=== PATIENT | female | born 1970 | race American Indian/Alaskan Native ===

== ENCOUNTER 2017-10-13 08:55 | Emergency (ER) | payer SELFPAY ==
[2017-10-13] MEDS ORDERED: BENADRYL ONE (12:19)
[2017-10-13] MEDS ORDERED: ANTIVERT PO ONE (12:53)
[2017-10-13] MEDS ORDERED: FIORICET PO ONE (12:54)
--- NOTE | 2017-10-13 13:29 | Emergency Department Report ---
ED General Adult HPI - General Chief complaint: Headache Stated complaint: HEADACHE/N/V Time Seen by Provider: 10/13/17 12:25 Source: patient Mode of arrival: Ambulatory Limitations: No Limitations - History of Present Illness Initial comments: Patient presents to emergency department with a complaint of dizziness. Patient states that when she stands up quickly or moves her head the room spins. Patient also complains of a headache of frontal torsion of her head that she describes as pressure. Patient denies any numbness, facial droop, slurred speech, or weakness. -: Sudden Location: head Severity scale (0 -10): 4 Quality: dull Consistency: constant Improves with: none Worsens with: none Associated Symptoms: denies other symptoms Treatments Prior to Arrival: none - Related Data Previous Rx's Medication Instructions Recorded Last Taken Type Ibuprofen [Motrin] 800 mg PO Q8HR PRN #30 tablet 10/13/17 Unknown Rx Meclizine [Antivert] 25 mg PO TID PRN #30 tablet 10/13/17 Unknown Rx hydroCHLOROthiazide [Hctz] 12.5 mg PO QDAY #30 capsule 10/13/17 Unknown Rx Allergies Allergy/AdvReac Type Severity Reaction Status Date / Time No Known Allergies Allergy Unverified 10/13/17 08:59 ED Review of Systems ROS: Stated complaint: HEADACHE/N/V Other details as noted in HPI Comment: All other systems reviewed and negative Constitutional: denies: chills, fever Eyes: denies: eye pain, eye discharge, vision change ENT: denies: ear pain, throat pain Respiratory: denies: cough, shortness of breath, wheezing Cardiovascular: denies: chest pain, palpitations Endocrine: no symptoms reported Gastrointestinal: denies: abdominal pain, nausea, diarrhea Genitourinary: denies: urgency, dysuria, discharge Musculoskeletal: denies: back pain, joint swelling, arthralgia Skin: denies: rash, lesions Neurological: headache, vertigo. denies: weakness, paresthesias Psychiatric: denies: anxiety, depression Hematological/Lymphatic: denies: easy bleeding, easy bruising ED Past Medical Hx - Past Medical History Previous Medical History?: No - Surgical History Past Surgical History?: No - Social History Smoking Status: Never Smoker Substance Use Type: None - Medications Home Medications: Home Medications Medication Instructions Recorded Confirmed Last Taken Type Ibuprofen [Motrin] 800 mg PO Q8HR PRN #30 tablet 10/13/17 Unknown Rx Meclizine [Antivert] 25 mg PO TID PRN #30 tablet 10/13/17 Unknown Rx hydroCHLOROthiazide [Hctz] 12.5 mg PO QDAY #30 capsule 10/13/17 Unknown Rx ED Physical Exam - General Limitations: No Limitations General appearance: alert, in no apparent distress - Head Head exam: Present: atraumatic, normocephalic - Eye Eye exam: Present: normal appearance, PERRL, EOMI. Absent: nystagmus - ENT ENT exam: Present: mucous membranes moist - Neck Neck exam: Present: normal inspection - Respiratory Respiratory exam: Present: normal lung sounds bilaterally. Absent: respiratory distress, wheezes, rales, rhonchi - Cardiovascular Cardiovascular Exam: Present: regular rate, normal rhythm. Absent: systolic murmur, diastolic murmur, rubs, gallop - GI/Abdominal GI/Abdominal exam: Present: soft, normal bowel sounds. Absent: distended, tenderness - Extremities Exam Extremities exam: Present: normal inspection - Back Exam Back exam: Present: normal inspection - Neurological Exam Neurological exam: Present: alert, oriented X3, CN II-XII intact, other (able to re-create symptoms with rapid eye and hand movement). Absent: abnormal gait , motor sensory deficit - Expanded Neurological Exam Expanded Cranial nerves: EOM's Intact: Normal, Tongue Deviation: Normal, Nystagmus: Normal, Facial Sensation: Normal, Facial Palsy with Forehead Movement: Normal, Facial Palsy without Forehead Movement: Normal Cerebellar function: Finger to Nose: Normal, Heel to Pike: Normal, Romberg: Normal - Psychiatric Psychiatric exam: Present: normal affect, normal mood - Skin Skin exam: Present: warm, dry, intact, normal color. Absent: rash ED Course Vital Signs 10/13/17 08:59 Temperature 98.5 F Pulse Rate 76 Respiratory 18 Rate Blood Pressure 185/99 O2 Sat by Pulse 100 Oximetry ED Medical Decision Making - Lab Data Result diagrams: 10/13/17 13:21 10/13/17 13:21 - EKG Data Rate: normal, bradycardia - EKG Data Interpretation: other (EKG shows a sinus bradycardia with a rate of 57. LVH of the lateral leads) - Medical Decision Making Patient have relief of her dizziness with medications Discussed results with patient and plan of care Critical care attestation.: If time is entered above; I have spent that time in minutes in the direct care of this critically ill patient, excluding procedure time. ED Disposition Clinical Impression: Vertigo Disposition: DC- TO HOME OR SELFCARE Is pt being admited?: No Does the pt Need Aspirin: No Condition: Stable Instructions: Vertigo (ED), How to Take a Blood Pressure (ED), Acute Headache (ED) Additional Instructions: return if worse Prescriptions: hydroCHLOROthiazide [Hctz] 12.5 mg PO QDAY #30 capsule Ibuprofen [Motrin] 800 mg PO Q8HR PRN #30 tablet PRN Reason: pain Meclizine [Antivert] 25 mg PO TID PRN #30 tablet PRN Reason: Vertigo Referrals: PRIMARY CARE, [Primary Care Provider] - 3-5 Days Time of Disposition: 14:36
[2017-10-13 13:39] LABS: Basophils # (Auto) 0.1 K/mm3 (0.0-0.1); Basophils % (Auto) 0.8 % (0.0-1.8); Eosinophils # (Auto) 0.1 K/mm3 (0.0-0.4); Eosinophils % (Auto) 2.2 % (0.0-4.3); Hematocrit 43.3 % (30.3-42.9); Hemoglobin 14.7 gm/dl (10.1-14.3); Lymphocytes # (Auto) 2.1 K/mm3 (1.2-5.4); Lymphocytes % (Auto) 32.4 % (13.4-35.0); Mean Corpuscular HGB Conc 34 % (30-34); Mean Corpuscular Hemoglobin 31 pg (28-32); Mean Corpuscular Volume 90 fl (79-97); Monocytes # (Auto) 0.3 K/mm3 (0.0-0.8); Monocytes % (Auto) 5.2 % (0.0-7.3); Platelet Count 201 K/mm3 (140-440); Red Blood Count 4.79 M/mm3 (3.65-5.03); Red Cell Distribution Width 13.9 % (13.2-15.2)
--- NOTE | 2017-10-13 13:49 | Cat Scan Report ---
CT HEAD WITHOUT CONTRAST: HISTORY: Dizziness, syncope. TECHNIQUE: Sequential 2.5mm CT images. COMPARISON: none. FINDINGS: Cerebral Parenchyma: Within normal limits. Cerebellum: Within normal limits. Brainstem: Within normal limits. Ventricles: Normal. Sella: Normal. Extra-axial spaces: Normal. Basal Cisterns: Normal. Intracranial Hemorrhage: None. Midline Shift: None. Calvarium: Normal. Sinuses: Normal. Mastoid Air Cells: Normal. Visualized Orbits: Normal. IMPRESSION: Cranial CT scan within normal limits.
[2017-10-13 13:57] LABS: Alanine Aminotransferase 20 units/L (7-56); Albumin 4.6 g/dL (3.9-5); BUN/Creatinine Ratio 10; Blood Urea Nitrogen 7 mg/dL (7-17); Calcium 9.5 mg/dL (8.4-10.2); Hemolysis Index 7
[2017-10-13 14:58] VITALS: BP 196/96
== END 2017-10-13 15:02 | disposition home or self-care (01) ==
LOC: ED 08:55
DX: R42 Dizziness and giddiness (principal); R51 Headache
CPT/HCPCS: 36415; 70450; 80053; 84484; 85025; 93005; 93010; 99284; J1200

== ENCOUNTER 2018-07-26 06:27 | Emergency (ER) | payer OTHER ==
[2018-07-26 07:23] LABS: Basophils % (Auto) 0.7 % (0.0-1.8); Eosinophils # (Auto) 0.2 K/mm3 (0.0-0.4); Eosinophils % (Auto) 2.4 % (0.0-4.3); Hematocrit 40.2 % (30.3-42.9); Hemoglobin 14.1 gm/dl (10.1-14.3); Lymphocytes # (Auto) 2.1 K/mm3 (1.2-5.4); Lymphocytes % (Auto) 33.1 % (13.4-35.0); Mean Corpuscular HGB Conc 35 % (30-34); Mean Corpuscular Volume 91 fl (79-97); Monocytes # (Auto) 0.5 K/mm3 (0.0-0.8); Monocytes % (Auto) 7.3 % (0.0-7.3); Platelet Count 175 K/mm3 (140-440); Red Blood Count 4.41 M/mm3 (3.65-5.03); Red Cell Distribution Width 13.9 % (13.2-15.2)
[2018-07-26 07:44] LABS: Alanine Aminotransferase 18 units/L (7-56); BUN/Creatinine Ratio 14; Blood Urea Nitrogen 11 mg/dL (7-17); Hemolysis Index 7
[2018-07-26 09:19] LABS: HCG Qualitative,Urine Negative (Negative)
[2018-07-26 09:21] LABS: Bilirubin,Urine NEG (Negative); Blood,Urine NEG (Negative); Color,Urine Yellow (Yellow); Mucus,Urine 1+ /HPF; Protein,Urine <15 mg/dL mg/dL (Negative); Urobilinogen,Urine < 2.0 mg/dL (<2.0)
[2018-07-26] MEDS ORDERED: NORMODYNE PO ONE (09:56)
[2018-07-26] MEDS ORDERED: NORMODYNE ONE (09:57)
[2018-07-26] MEDS ORDERED: DILAUDID IV ONE ×2 (10:19→12:34)
[2018-07-26] MEDS ORDERED: TORADOL IV ONE ×2 (10:19→10:27)
[2018-07-26] MEDS ORDERED: ZOFRAN IV ONE ×2 (10:19→10:27)
[2018-07-26] MEDS ORDERED: BENADRYL IV ONE (10:19)
[2018-07-26] MEDS ORDERED: D5NS 0.2% 1,000 ML IV SCH (11:00)
--- NOTE | 2018-07-26 11:29 | Emergency Department Report ---
ED Abdominal Pain HPI - General Chief Complaint: Abdominal Pain Stated Complaint: BP AND ABD PAIN Time Seen by Provider: 07/26/18 10:12 Source: patient Mode of arrival: Ambulatory Limitations: No Limitations - History of Present Illness Initial Comments: 48 year old female with a past medical history of hypertension presents to the hospital complaining of elevated blood pressure and abdominal pain. Patient has a known history of hypertension but has been noncompliant with for hydrocortisone 12.5 mg. Yesterday while at work she felt hot, nauseated, and had a headache and therefore checked her blood pressure. Systolic was greater than 200 and therefore she will restarted her prescribed hydrochlorothiazide. Patient now presents stating her headache has resolved and her blood pressure is still elevated despite reinitiating her medication. She also complains of progressively worsening over the last several weeks periumbilical abdominal pain secondary to chronic supraumbilical hernia. She reports mild increase in hernia size since diagnoses of hernia one year ago. Intermittent vomiting reported without fever. Severity scale (0 -10): 4 - Related Data Previous Rx's Medication Instructions Recorded Last Taken Type Ibuprofen [Motrin] 800 mg PO Q8HR PRN #30 tablet 10/13/17 Unknown Rx Meclizine [Antivert] 25 mg PO TID PRN #30 tablet 10/13/17 Unknown Rx amLODIPine [Norvasc] 10 mg PO DAILY #30 tab 07/26/18 Unknown Rx hydroCHLOROthiazide [HCTZ] 12.5 mg PO QDAY #30 capsule 07/26/18 Unknown Rx Allergies Allergy/AdvReac Type Severity Reaction Status Date / Time No Known Allergies Allergy Unverified 10/13/17 08:59 ED Review of Systems ROS: Stated complaint: BP AND ABD PAIN Other details as noted in HPI Comment: All other systems reviewed and negative ED Past Medical Hx - Past Medical History Hx Hypertension: Yes Additional medical history: Periumbilical hernia - Surgical History Past Surgical History?: No - Social History Smoking Status: Never Smoker Substance Use Type: None - Medications Home Medications: Home Medications Medication Instructions Recorded Confirmed Last Taken Type Ibuprofen [Motrin] 800 mg PO Q8HR PRN #30 tablet 10/13/17 Unknown Rx Meclizine [Antivert] 25 mg PO TID PRN #30 tablet 10/13/17 Unknown Rx amLODIPine [Norvasc] 10 mg PO DAILY #30 tab 07/26/18 Unknown Rx hydroCHLOROthiazide [HCTZ] 12.5 mg PO QDAY #30 capsule 07/26/18 Unknown Rx ED Physical Exam - General Limitations: No Limitations - Other Other exam information: General: No limitations, patient is alert in no acute distress Head exam: Atraumatic, normocephalic Eyes exam: Normal appearancect ENT: Moist mucous membrane, normal oropharynx Neck exam: Normal inspection, full range of motion, no meningismus nontender Respiratory exam: Clear to auscultation bilateral, no wheezes, rales, crackles Cardiovascular: Normal rate and rhythm, normal heart sounds Abdomen: Soft, nondistended, hernia palpated above the umbilicus and tender to palpation, with normal bowel sounds, no rebound, or guarding Extremity: Full range of motion normal inspection no deformity Back: Normal Inspection, full range of motion, no tenderness Neurologic: Alert, oriented x3, cranial nerves intact, no motor or sensory de ficit Psychiatric: normal affect, normal mood Skin: Warm, dry, intact ED Course Vital Signs 07/26/18 07/26/18 07/26/18 06:30 08:58 09:00 Temperature 98 F Pulse Rate 78 66 Respiratory 18 13 16 Rate Blood Pressure 210/100 206/107 O2 Sat by Pulse 98 100 Oximetry 07/26/18 07/26/18 07/26/18 09:16 09:30 09:45 Temperature Pulse Rate 70 64 61 Respiratory 13 17 14 Rate Blood Pressure 213/109 222/105 202/104 O2 Sat by Pulse 96 99 100 Oximetry 07/26/18 07/26/18 07/26/18 09:57 10:00 10:16 Temperature Pulse Rate 82 60 68 Respiratory 16 15 Rate Blood Pressure 204/102 195/123 218/116 O2 Sat by Pulse 99 100 Oximetry 07/26/18 07/26/18 07/26/18 10:30 10:45 11:20 Temperature Pulse Rate 63 61 Respiratory 15 13 Rate Blood Pressure 205/121 184/107 197/107 O2 Sat by Pulse 100 96 99 Oximetry 07/26/18 07/26/18 07/26/18 11:30 11:45 12:34 Temperature Pulse Rate 62 61 Respiratory 12 20 Rate Blood Pressure 190/96 194/103 152/120 O2 Sat by Pulse 97 97 Oximetry 06/18/19 06/18/19 06/18/19 12:46 13:00 13:15 Temperature Pulse Rate Respiratory Rate Blood Pressure 218/116 191/118 204/115 O2 Sat by Pulse 98 100 96 Oximetry 07/26/18 07/26/18 07/26/18 13:30 13:45 13:50 Temperature Pulse Rate Respiratory Rate Blood Pressure 192/105 184/99 179/101 O2 Sat by Pulse 96 96 95 Oximetry 07/26/18 07/26/18 07/26/18 14:00 14:05 14:10 Temperature Pulse Rate Respiratory Rate Blood Pressure 186/92 184/103 188/101 O2 Sat by Pulse 96 97 95 Oximetry 07/26/18 07/26/18 14:15 14:20 Temperature Pulse Rate Respiratory Rate Blood Pressure 189/106 184/94 O2 Sat by Pulse 94 94 Oximetry - Reevaluation(s) Reevaluation #1: 07/26/18 13:02 Patient changed her mind after talking to her daughters and requestes attempted hernia reduction in the ED. Patient signed a conscious sedation consent form prior to receiving Dilaudid and Ativan in the ED. After receiving Dilaudid and Ativan patient was placed in supine position slight Trendelenburg. Steady pressure was placed above the umbilicus with successful reduction of supraumbilical hernia. Patient reports improvement in pain and previous bulge. We'll attempt to obtain abdominal binder. Conscious sedation is not necessary at this time. - Consultations Consultation #1: 07/26/18 12:[address] Ryder underwriting consultant general surgeon. He suggests DC with follow-up the if the patient appears comfortable versus ER attempt at hernia reduction if patient appears to be in significant distress. Upon reassessment at this time patient is very comfortable reports improvement in pain after Toradol. Reports that she is vomiting maybe little but is no longer nauseated even prior to receiving the Zofran. She was provided options for follow-up versus attempted hernia reduction in the ER. Patient chooses to follow-up. Patient is very comfortable without signs of leukocytosis, fever, or vomiting. She will be discharged home with follow-up within the next 2 days with general surgeon as recommended. 07/26/18 14:20 Dr ryder provided an update - Procedure Description Procedures done: Periumbilical hernia reduction. Patient medicated with Dilaudid 1 mg and Ativan 0.5 mg IV prior to reduction attempt. Once adequate analgesia obtained, steady pressure was held with successful reduction of supraumbilical hernia and improvement in discomfort. Abdominal binder placed ED Medical Decision Making - Lab Data Result diagrams: 07/26/18 06:55 07/26/18 06:55 Lab Results 07/26/18 07/26/18 07/26/18 Range/Units 06:55 06:55 08:58 WBC 6.4 (4.5-11.0) K/mm3 RBC 4.41 (3.65-5.03) M/mm3 Hgb 14.1 (10.1-14.3) gm/dl Hct 40.2 (30.3-42.9) % MCV 91 (79-97) fl MCH 32 (28-32) pg MCHC 35 H (30-34) % RDW 13.9 (13.2-15.2) % Plt Count 175 (140-440) K/mm3 Lymph % (Auto) 33.1 (13.4-35.0) % [place] % (Auto) 7.3 (0.0-7.3) % Eos % (Auto) 2.4 (0.0-4.3) % Baso % (Auto) 0.7 (0.0-1.8) % Lymph # 2.1 (1.2-5.4) K/mm3 [place] # 0.5 (0.0-0.8) K/mm3 Eos # 0.2 (0.0-0.4) K/mm3 Baso # 0.0 (0.0-0.1) K/mm3 Seg Neutrophils % 56.5 (40.0-70.0) % Seg Neutrophils # 3.6 (1.8-7.7) K/mm3 Sodium 138 (137-145) mmol/L Potassium 3.7 (3.6-5.0) mmol/L Chloride 99.3 (98-107) mmol/L Carbon Dioxide 27 (22-30) mmol/L Anion Gap 15 mmol/L BUN 11 (7-17) mg/dL Creatinine 0.8 (0.7-1.2) mg/dL Estimated GFR > 60 ml/min BUN/Creatinine Ratio 14 % Glucose 122 H (65-100) mg/dL Calcium 9.0 (8.4-10.2) mg/dL Total Bilirubin 0.50 (0.1-1.2) mg/dL AST 16 (5-40) units/L ALT 18 (7-56) units/L Alkaline Phosphatase 80 (35-129) units/L Total Protein 7.2 (6.3-8.2) g/dL Albumin 4.0 (3.9-5) g/dL Albumin/Globulin Ratio 1.3 % Urine Color Yellow (Yellow) Urine Turbidity Slightly-cloudy (Clear) Urine pH 5.0 (5.0-7.0) Ur Specific [place] 1.021 (1.003-1.030) Urine Protein <15 mg/dl (Negative) mg/dL Urine Glucose (UA) Neg (Negative) mg/dL Urine Ketones Neg (Negative) mg/dL Urine Blood Neg (Negative) Urine Nitrite Neg (Negative) Ur Reducing Substances Not Reportable Urine Bilirubin Neg (Negative) Urine Ictotest Not Reportable Urine Urobilinogen < 2.0 (<2.0) mg/dL Ur Leukocyte Esterase Tr (Negative) Urine WBC (Auto) 5.0 (0.0-6.0) /HPF Urine RBC (Auto) 3.0 (0.0-6.0) /HPF U Epithel Cells (Auto) 10.0 (0-13.0) /HPF Urine Mucus 1+ /HPF Urine HCG, Qual Negative (Negative) - Radiology Data Radiology results: report reviewed PROCEDURE: CT ABDOMEN PELVIS W CON TECHNIQUE: Computerized axial tomography of the abdomen and pelvis was performed after the IV injection of iodinated nonionic contrast. Coronal and sagittal reconstructed imaging provided. CT DOSE LENGTH PRODUCT: 2603.3 mGy-cm. HISTORY: periumbilical hernia, pain COMPARISONS: None currently available. FINDINGS: Abdomen: Lung bases and images of the heart are grossly unremarkable. Gallbladder: Nondistended. Gallstones. No wall thickening. Common bile duct does not appear prominent. Liver, stomach, spleen, pancreas, adrenals, and kidneys are unremarkable. No aneurysm. No dissection. No significant atherosclerotic disease. IVC is unremarkable. There is no periaortic or retroperitoneal adenopathy or mass. [id number] stool. No wall thickening or inflammatory changes. Terminal ileum is unremarkable. Appendix is normal. Small bowel loops are unremarkable. No obstructive pattern. No air-fluid levels. No free air. No free fluid. Mesentery is unremarkable. Fat- containing ventral hernia on series 2:90 measures 6.8 x 4.7 cm. Neck measures 2.0 cm. Stranding within the hernia identified. Pelvis: Uterus: Enlarged heterogeneous lobulated uterus large exophytic component at the left fundus measures 4.8 cm. Bladder: Unremarkable. No wall thickening. There is no pelvic mass or adenopathy. Inguinal regions are unremarkable. Bones: No suspicious oss eous lesions on this limited examination of the skeleton. Metastatic disease better evaluated with bone scan. Degenerative changes are in the spine. IMPRESSION: * Fat-containing umbilical hernia which may be incarcerated. Please correlate for possible strangulation. * Gallstones. No CT evidence for cholecystitis. * Enlarged lobulated uterus may be related to fibroids. * 019 at 0849 PT: I, Margarito Vincent MD, discussed the findings over the phone with Dr. Lowe. - Medical Decision Making Chronic supraumbilical hernia with successful reduction in the ED with no signs of bowel strangulation or incarceration or sepsis. Outpatient follow-up with a vascular this week advised. Patient also presents with uncontrolled hypertension long-standing noncompliance with BP medication. Patient received labetalol 200 mg prior to my arrival w ithout significant reduction in pressure. He should have further and blood pressure improvement after clonidine 0.1 mg. She is only sporadically taken her hydrochlorothiazide 12.5 mg. Norvasc 10 mg of the added to her regimen including hydrochlorothiazide and outpatient follow-up will be advised. - Differential Diagnosis hypertensive emergency, hypertensive urgency, obstruction, hernia Critical Care Time: No Critical care attestation.: If time is entered above; I have spent that time in minutes in the direct care o f this critically ill patient, excluding procedure time. ED Disposition Clinical Impression: Uncontrolled hypertension, Reducible umbilical hernia, Noncompliance with medication regimen Disposition: DC-01 TO HOME OR SELFCARE Is pt being admited?: No Does the pt Need Aspirin: No Condition: Stable Instructions: Hypertension (ED), Umbilical Hernia (ED) Additional Instructions: Take the medication as prescribed. Follow up with your doctor or the clinic/doctor provided. Return if symptoms worsen as indicated by your discharge instructions. Is a very important that you follow up with a general surgeon this week preferably within the next 2 days for reevaluation and discussion of treatment options for your chronic hernia. It is also important that you follow-up with a primary care doctor for further management of your blood pressure. Prescriptions: hydroCHLOROthiazide [HCTZ] 12.5 mg PO QDAY #30 capsule amLODIPine [Norvasc] 10 mg PO DAILY #30 tab Referrals: JENNY OHARA MD [Primary Care Provider] - 3-5 Days NANDO RYDER MD [Staff Physician] - 2-3 Days (general surgeon) Time of Disposition: 14:50
--- NOTE | 2018-07-26 11:52 | Cat Scan Report ---
PROCEDURE: CT ABDOMEN PELVIS W CON TECHNIQUE: Computerized axial tomography of the abdomen and pelvis was performed after the IV injecti on of iodinated nonionic contrast. Coronal and sagittal reconstructed imaging provided. CT DOSE LENGTH PRODUCT: 2603.3 mGy-cm. HISTORY: periumbilical hernia, pain COMPARISONS: None currently available. FINDINGS: Abdomen: Lung bases and images of the heart are grossly unremarkable. Gallbladder: Nondistended. Gallstones. No wall thickening. Common bile duct does not appear prominent . Liver, stomach, spleen, pancreas, adrenals, and kidneys are unremarkable. No aneurysm. No dissection. No significant atherosclerotic disease. IVC is unremarkable. There is no periaortic or retroperitoneal adenopathy or mass. [id number]-[id number]-gkfljdgv stool. No wall thickening or inflammatory changes. Terminal ileum is unremarkable. Appendix is normal. Small bowel loops are unremarkable. No obstructive pattern. No air-fluid levels. No free air. No free fluid. Mesentery is unremarkable. Fat-containing ventral hernia on series 2:90 measures 6.8 x 4.7 cm. Neck measures 2.0 cm. Stranding w ithin the hernia identified. Pelvis: Uterus: Enlarged heterogeneous lobulated uterus large exophytic component at the left fundus measures 4.8 cm. Bladder: Unremarkable. No wall thickening. There is no pelvic mass or adenopathy. Inguinal regions are unremarkable. Bones: No suspicious osseous lesions on this limited examination of the skeleton. Metastatic disease better evaluated with bone scan. Degenerative changes are in the spine. IMPRESSION: * Fat-containing umbilical hernia which may be incarcerated. Please correlate for possible strangula tion. * Gallstones. No CT evidence for cholecystitis. * Enlarged lobulated uterus may be related to fibroids. * 07/26/2018 at 0849 PT: I, Margarito Vincent MD, discussed the findings over the phone with Dr. Lowe. This document is electronically signed by Margarito Vincent MD., July 26 2018 11:50:01 AM ET
[2018-07-26] MEDS ORDERED: ATIVAN IV ONE (12:34)
[2018-07-26] MEDS ORDERED: CATAPRES PO ONE (13:27)
[2018-07-26 14:21] VITALS: BP 184/94
== END 2018-07-26 15:09 | disposition home or self-care (01) ==
LOC: ED 06:27
DX: I10 Essential (primary) hypertension (principal); K42.9 Umbilical hernia without obstruction or gangrene; Z91.14 Patient's other noncompliance with medication regimen; Z79.1 Long term (current) use of non-steroidal anti-inflammatories (NSAID); Z79.899 Other long term (current) drug therapy
CPT/HCPCS: 36415; 74177; 80053; 81001; 81025; 85025; 96374; 96375; 99284; J1170; J1885; J2060; J2405; Q9967

== ENCOUNTER 2018-07-26 18:39 | Inpatient (IN) | payer OTHER ==
[2018-07-26] MEDS ORDERED: ATIVAN IV ONE (18:56)
[2018-07-26] MEDS ORDERED: DILAUDID IV ONE (18:56)
[2018-07-26] MEDS ORDERED: KETALAR ONE (20:09)
[2018-07-26] MEDS ORDERED: DIPRIVAN 10 MG/ML IV ONE ×2 (20:24→20:29)
--- NOTE | 2018-07-26 20:33 | Emergency Department Report ---
HPI - General Chief Complaint: Abdominal Pain Time Seen by Provider: 07/26/18 18:55 - HPI HPI: 48-year-old -[place] female presents to the emergency department with a return of her abdominal pain and umbilical hernia. The patient was seen here [facility] today and was found to have a incarcerated fat filled umbilical hernia on CT scan. They were able to reduce it and after consultation with the general surgeon the decision was made to have the patient follow up outpatient. She was placed in an abdominal binder. The patient says that she went home and took off the binder so that she could take a shower and thinks that the hernia may have c ome out either just before this or upon taking off the binder. She then attempted to eat something but had increased pain, nausea and vomiting and has had continued abdominal pain since. ED Past Medical Hx - Past Medical History Previous Medical History?: Yes Hx Hypertension: Yes Additional medical history: Periumbilical hernia - Surgical History Past Surgical History?: No - Social History Smoking Status: Unknown if ever smoked Substance Use Type: None - Medications Home Medications: Home Medications Medication Instructions Recorded Confirmed Last Taken Type Ibuprofen [Motrin] 800 mg PO Q8HR PRN #30 tablet 10/13/17 07/26/18 07/26/18 Rx Meclizine [Antivert] 25 mg PO TID PRN #30 tablet 10/13/17 07/26/18 07/26/18 Rx amLODIPine [Norvasc] 10 mg PO DAILY #30 tab 07/26/18 07/26/18 07/26/18 Rx hydroCHLOROthiazide [HCTZ] 12.5 mg PO QDAY #30 capsule 07/26/18 07/26/18 07/26/18 Rx ED Review of Systems ROS: Stated complaint: HERNIA Other details as noted in HPI Comment: All other systems reviewed and negative Constitutional: denies: chills, fever Eyes: denies: eye pain, vision change ENT: denies: ear pain, throat pain Respiratory: denies: cough, shortness of breath Cardiovascular: denies: chest pain, palpitations Gastrointestinal: abdominal pain, nausea, vomiting Genitourinary: denies: dysuria, discharge Musculoskeletal: denies: back pain, arthralgia Skin: denies: rash, lesions Neurological: denies: headache, weakness Physical Exam - Physical Exam Physical Exam: GENERAL: The patient is well-developed well-nourished. HENT: Normocephalic. Atraumatic. Patient has moist mucous membranes. EYES: Extraocular motions are intact. NECK: Supple. Trachea is midline. CHEST/LUNGS: Clear to auscultation. There is no respiratory distress noted. HEART/CARDIOVASCULAR: Regular. There is no tachycardia. There is no murmur. ABDOMEN: Abdomen is soft. There is tenderness to palpation to the periumbilical abdomen. The patient has an umbilical cord supraumbilical hernia. Patient has normal bowel sounds. SKIN: Skin is warm and dry. NEURO: The patient is awake, alert, and oriented. The patient is cooperative. The patient has no focal neurologic deficits. The patient has normal speech. MUSCULOSKELETAL: There is no tenderness or deformity. There is no limitation range of motion. There is no evidence of acute injury. ED Course - Consultations Consultation #1: 07/27/18 01:26 I spoke with the general surgeon, Dr. Ryder, who was aware of this patient from her previous visit earlier today. Dr. Ryder has suggested that the patient be admitted to the hospital and he will see the patient is a consult and will offer her surgery for this hernia during her admission. - Moderate Sedation Indications: other (hernia reduction) ASA Class: II Mallampati Airway Score: 3 Time of Last PO Intake: 17:00 Preparation: business economist applied, pulse oximeter, capnometry used, supplemental O2 applied, suction/airway equipment at bedside, IV secured IV Propofol Dose (mgs): 40 Complications: none Patient Tolerated Procedure: well Additional Comments: A second moderate sedation had to be done at around 2250 after the fat- containing umbilical hernia once again became incarcerated. A timeout was done. Respiratory therapy was at bedside. Once again the patient was attached to cardiac monitoring and we used capnography. She had a patent right forearm IV. The ASA and mallampati classification or unchanged from the previous moderate sedation. The patient was given 3 doses of propofol totaling 100 mg. At this point, I was able to reduce the umbilical hernia and the patient was placed in a abdominal binder. She was reevaluated and monitored closely in the emergency department until she returned back to her normal baseline mental status. No obvious complications from this procedure. ED Medical Decision Making - Medical Decision Making This patient was seen here earlier the day by my colleague for a incarcerated fat-containing umbilical hernia. She will return when she had nausea and vomiting, abdominal pain, and it seemed that the previously reduced hernia was once again incarcerated. I was unable to reduce the hernia with only a small amount of pain medication and this time she appeared to require moderate sedation. The moderate sedation procedure was done and I was able to reduce the hernia with 40 mg of propofol. At the time it took to get an abdominal binder, the patient began moving around and once again the hernia popped out and appeared to be incarcerated. The patient had severe abdominal pain and a return of her nausea and vomiting. For this reason a second moderate sedation procedure was done. Once again I was able to get the hernia reduced and the patient was placed in a abdominal binder. The patient will be admitted to the hospital and will have a consultation done by general surgery who will speak to the patient regarding surgery during this admission. The patient was accepted for admission by the hospitalist service. - Differential Diagnosis strangulated or incarcerated hernia, malignancy, bowel obstruction Critical Care Time: No Critical care attestation.: If time is entered above; I have spent that time in minutes in the direct care of this critically ill patient, excluding procedure time. ED Disposition Clinical Impression: Incarcerated umbilical hernia Abdominal pain Qualifiers: Abdominal location: periumbilical Qualified Code(s): R10.33 - Periumbilical pain Nausea & vomiting Qualifiers: Vomiting type: unspecified Vomiting Intractability: non-intractable Qualified Code(s): R11.2 - Nausea with vomiting, unspecified Disposition: 09 OP ADMIT IP TO THIS HOSP Is pt being admited?: Yes Condition: Serious Time of Disposition: 02:45
[2018-07-26] MEDS ORDERED: DILAUDID IV PRN (21:46)
[2018-07-26] MEDS ORDERED: SODIUM CHLORIDE FLUSH SYRINGE 10 ML IV PRN (21:46)
[2018-07-26] MEDS ORDERED: TYLENOL PO PRN (21:46)
[2018-07-26] MEDS ORDERED: ZOFRAN IV PRN (21:46)
[2018-07-26] MEDS ORDERED: MORPHINE IV PRN (21:46)
[2018-07-26] MEDS ORDERED: APRESOLINE IV PRN (21:52)
--- NOTE | 2018-07-26 22:01 | History and Physical Report ---
History of Present Illness Date of examination: 07/26/18 Date of admission: 07/26/2018 Chief complaint: abdominal pain History of present illness: 48-year-old -Scottish female with history of hypertension presents to [facility] ED with complaints of periumbilical hernia abdominal pain. This is patient's second visit within the past 12 hours. During previous presentation hernia reduction was attempted in ED. She was given an abdominal binder and discharged to home. She was advised to follow up as OP with Gen Surg. Patient states that she went home and wanted to take a shower, so she took off the binder. She thinks that the hernia came out just after taking off the binder and getting in the shower. After showering she attempted to eat something but had increased pain, nausea and vomiting and has had continued abdominal pain since. Admits: No pain, nausea, vomiting, diarrhea, mild headache Denies: fever, chest pain, cough, hemoptysis, dizziness, or visual alterations Past History Past Medical History: hypertension Past Surgical History: No surgical history Social history: lives with family Family history: no significant family history Medications and Allergies Allergies Allergy/AdvReac Type Severity Reaction Status Date / Time No Known Allergies Allergy Unverified 10/13/17 08:59 Home Medications Medication Instructions Recorded Confirmed Last Taken Type Ibuprofen [Motrin] 800 mg PO Q8HR PRN #30 tablet 10/13/17 07/26/18 07/26/18 Rx Meclizine [Antivert] 25 mg PO TID PRN #30 tablet 10/13/17 07/26/18 07/26/18 Rx amLODIPine [Norvasc] 10 mg PO DAILY #30 tab 07/26/18 07/26/18 07/26/18 Rx hydroCHLOROthiazide [HCTZ] 12.5 mg PO QDAY #30 capsule 07/26/18 07/26/18 07/26/18 Rx Active Meds: Active Medications Acetaminophen (Tylenol) 650 mg PO Q4H PRN PRN Reason: Pain MILD(1-3)/Fever >100.5/SELBY Clonidine HCl (Catapres-Tts Patch) 0.2 mg TD QWEEK DASHAWN Heparin Sodium (Porcine) (Heparin) 5,000 unit SUB-Q Q12HR DASHAWN Hydralazine HCl (Apresoline) 10 mg IV Q4HR PRN PRN Reason: Blood Pressure Hydromorphone HCl (Dilaudid) 0.5 mg IV Q3H PRN PRN Reason: Pain , Severe (7-10) Sodium Chloride (Nacl 0.9% 1000 Ml) 1,000 mls @ 100 mls/hr IV DIRECT DASHAWN Morphine Sulfate (Morphine) 2 mg IV Q4H PRN PRN Reason: Pain, Moderate (4-6) Ondansetron HCl (Zofran) 4 mg IV Q8H PRN PRN Reason: Nausea And Vomiting Sodium Chloride (Sodium Chloride Flush Syringe 10 Ml) 10 ml IV BID DASHAWN Sodium Chloride (Sodium Chloride Flush Syringe 10 Ml) 10 ml IV PRN PRN PRN Reason: LINE FLUSH Review of Systems All systems: negative (reviewd and no addition remarkable complaints except as noted below) Constitutional: weakness Cardiovascular: high blood pressure Gastrointestinal: abdominal pain (incarcerated hernia), nausea, vomiting, diarrhea Exam - Physical Exam Narrative exam: Physical exam General appearance: Present: No acute distress, alert and oriented, - [place] adult female - EENT Eyes: Present: PERRL, EOM intact ENT: hearing intact, normal dentition - Neck Neck: Present: supple, normal ROM - Respiratory Respiratory effort: Non-labored Respiratory: Clear throughout - Cardiovascular Heart rate: 63 (bpm) Rhythm: Sinus rhythm Heart Sounds: Present: S1 & S2. Absent: rub, click - Extremities Extremities: no ischemia, pulses intact - Peripheral Assessment Peripheral Pulses: within normal limits - Abdominal General gastrointestinal: Soft, non-distended, hernia palpated above the umbili cus and tender to palpation,normal bowel sounds - Integumentary Integumentary: Present: warm, dry - Musculoskeletal Musculoskeletal: Able to move all extremities - Psychiatric Psychiatric: Appropriate for situation, cooperative - Constitutional Vitals: Temp Pulse Resp BP Pulse Ox 63 15 187/100 100 07/26/18 21:45 07/26/18 21:45 07/26/18 21:45 07/26/18 21:45 Results - Imaging and Cardiology CT scan - abdomen: report reviewed (Fat-containing umbilical hernia which may be incarcerated. Please correlate for possible strangulation.Gallstones. No CT evidence for cholecystitis. Enlarged lobulated uterus may be related to fibroids.), image reviewed Assessment and Plan Assessment and plan: 48-year-old -Scottish female with history of hypertension presents to [facility] ED with complaints of periumbilical hernia, abdominal pain, n/v/d. Manual hernia reduction was attempted earlier today. However patient removed abdominal binder and hernia came back. Abdominal CT showed fat containing ventral hernia which may be incarcerated. Dr. Ryder (Gen Surg) has been contacted and plans on seeing patient for surgical repair. Will make NPO and admit to Med/[facility] floor. HTN Urgency Incarcerated Umbilical Hernia Acute Abdominal Pain N/V Plan: Continue supportive care Pain management NPO; may have ice chips for comfort IVF NS @ 100ml/hr Monitor BP IV hydralazine when necessary Clonidine 0.2mg patch Dr. Ryder (Gen Surg) consulted and following DVT PPX on heparin and SCD's Advance Directives: No VTE prophylaxis?: Chemical Plan of care discussed with patient/family: Yes
[2018-07-26] MEDS: SODIUM CHLORIDE FLUSH SYRINGE 10 ML IV SCH (22:24)
[2018-07-26] MEDS ORDERED: HEPARIN ONE (22:33)
[2018-07-26] MEDS: HEPARIN SUB-Q SCH (22:34)
[2018-07-26] MEDS ORDERED: ZOFRAN ONE (22:50)
[2018-07-26] MEDS: NACL 0.9% 1000 ML 1,000 ML IV SCH (23:51)
[2018-07-27] MEDS ORDERED: XYLOCAINE 1% 20 mL INFILTRATI ONE ×2
[2018-07-27] MEDS ORDERED: MARCAINE-EPI 0.5%-1:200,000 INFILTRATI ONE ×2
[2018-07-27] MEDS ORDERED: CATAPRES-TTS PATCH TD SCH (08:00)
[2018-07-27] MEDS ORDERED: ceFAZolin 2 GM in NACL 0.9% 100 ML IV ONE (08:33)
--- NOTE | 2018-07-27 08:33 | Consultation ---
History of Present Illness Consult date: 07/27/18 Reason for consult: hernia Requesting physician: BALDEMAR AKBAR Chief complaint: abdominal pain - History of present illness History of present illness: 48yo obese female with history of hypertension presented to the emergency room with complaints of worsening abdominal pain. She was found to have an incarcerated abdominal wall hernia. It was successfully reduced with conscious sedation and patient was sent home only to return later with recurrence of the incarceration. As it did not appear that she would remain stable at home, patient was admitted. Patient reports that she continues to have pain but not as intense as last night. Hernias been present for at least one year. It has gotten worse over the last week. She has had periods of nausea and vomiting. Denies any bowel obstruction. Denies any diarrhea. Denies any prior surgery or trauma. She would like to have it repaired. Past History Past Medical History: hypertension Past Surgical History: No surgical history Social history: lives with family, alcohol abuse (1-2 beers per day - denies any withdrawal symptoms). denies: smoking, prescription drug abuse Family history: no significant family history Medications and Allergies Allergies Allergy/AdvReac Type Severity Reaction Status Date / Time No Known Allergies Allergy Unverified 10/13/17 08:59 Home Medications Medication Instructions Recorded Confirmed Last Taken Type Ibuprofen [Motrin] 800 mg PO Q8HR PRN #30 tablet 10/13/17 07/26/18 07/26/18 Rx Meclizine [Antivert] 25 mg PO TID PRN #30 tablet 10/13/17 07/26/18 07/26/18 Rx amLODIPine [Norvasc] 10 mg PO DAILY #30 tab 07/26/18 07/26/18 07/26/18 Rx hydroCHLOROthiazide [HCTZ] 12.5 mg PO QDAY #30 capsule 07/26/18 07/26/18 07/26/18 Rx Active Meds: Active Medications Acetaminophen (Tylenol) 650 mg PO Q4H PRN PRN Reason: Pain MILD(1-3)/Fever >100.5/SELBY Clonidine HCl (Catapres-Tts Patch) 0.2 mg TD We DASHAWN Heparin Sodium (Porcine) (Heparin) 5,000 unit SUB-Q Q12HR DASHAWN Last Admin: 07/26/18 22:34 Dose: 5,000 unit Documented by: Hydralazine HCl (Apresoline) 10 mg IV Q4H PRN PRN Reason: Blood Pressure Hydromorphone HCl (Dilaudid) 0.5 mg IV Q3H PRN PRN Reason: Pain , Severe (7-10) Last Admin: 07/27/18 01:01 Dose: 0.5 mg Documented by: Sodium Chloride (Nacl 0.9% 1000 Ml) 1,000 mls @ 100 mls/hr IV DIRECT DASHAWN Last Admin: 07/26/18 23:51 Dose: 100 mls/hr Documented by: Morphine Sulfate (Morphine) 2 mg IV Q4H PRN PRN Reason: Pain, Moderate (4-6) Last Admin: 07/26/18 22:24 Dose: 2 mg Documented by: Ondansetron HCl (Zofran) 4 mg IV Q8H PRN PRN Reason: Nausea And Vomiting Last Admin: 07/26/18 22:25 Dose: 4 mg Documented by: Sodium Chloride (Sodium Chloride Flush Syringe 10 Ml) 10 ml IV BID DASHAWN Last Admin: 07/26/18 22:24 Dose: 10 ml Documented by: Sodium Chloride (Sodium Chloride Flush Syringe 10 Ml) 10 ml IV PRN PRN PRN Reason: LINE FLUSH Review of Systems - Constitutional chronic pain, no fever, no chills - Cardiovascular no chest pain, no shortness of breath - Respiratory no cough - Gastrointestinal abdominal pain, nausea, vomiting, no diarrhea, no hematemesis, no coffee ground emesis, no BRBPR, no melena, no hematochezia, no dyspepsia/bloating - Muskuloskeletal no low back pain Exam Vital Signs Pulse Resp 71 11 L 07/26/18 19:12 07/26/18 19:12 - General physical appearance Positive: no distress, no pain, obese - Eyes Positive: normal occular movement - Respiratory Positive: normal expansion, normal respiratory effort, clear to auscultation - Cardiovascular Rhythm: regular - Abdomen Abdomen: Present: soft, tender (superior to umbilicus), masses (superior to umbilicus - ill defined). Absent: guarding, rigid, wound, surgical scars - Integumentary no rash, no growths, no abnormal pigmentation - Neurologic Neurologic: alert and oriented to time, place and person, motor strength and sensation are grossly intact - Psychiatric Psychiatric: appropriate mood/affect, intact judgment & insight, cooperative Results - Labs 07/27/18 08:40 07/27/18 08:40 - Imaging CT scan - abdomen: report reviewed, image reviewed CT scan - pelvis: report reviewed, image reviewed Assessment and Plan - Patient Problems (1) Incarcerated ventral hernia Current Visit: Yes Status: Acute Plan to address problem: Pt stable. Patient is at high risk for direction to strangulation of the ti ssues. She had a recurrence of the incarceration in less than 24 hours, we should proceed with surgery. The fascial defect appears to be 2 x [address] scan. She would be a good candidate for robotic repair. Procedure, risks, benefits were discussed. All questions were answered. Consent was obtained. We'll proceed to the OR this afternoon. Please call with questions. time=30min
[2018-07-27] MEDS ORDERED: ANCEF/STERILE WATER 2 GM/20 ML 2 GM/20 ML SYRINGE IV NR (09:00)
[2018-07-27 09:07] LABS: Basophils % (Auto) 0.5 % (0.0-1.8); Eosinophils % (Auto) 0.1 % (0.0-4.3); Hemoglobin 13.8 gm/dl (10.1-14.3); Lymphocytes # (Auto) 1.4 K/mm3 (1.2-5.4); Lymphocytes % (Auto) 19.4 % (13.4-35.0); Mean Corpuscular HGB Conc 35 % (30-34); Mean Corpuscular Volume 91 fl (79-97); Monocytes # (Auto) 0.5 K/mm3 (0.0-0.8); Monocytes % (Auto) 6.6 % (0.0-7.3); Platelet Count 184 K/mm3 (140-440); Red Blood Count 4.41 M/mm3 (3.65-5.03); Red Cell Distribution Width 13.7 % (13.2-15.2)
[2018-07-27 09:31] LABS: BUN/Creatinine Ratio 15; Blood Urea Nitrogen 12 mg/dL (7-17); Hemolysis Index 3
[2018-07-27] MEDS: NACL 0.9% 1000 ML 1,000 ML IV SCH ×2 (09:43→19:06)
[2018-07-27] MEDS: HEPARIN SUB-Q SCH ×2 (09:45→21:07)
[2018-07-27] MEDS: SODIUM CHLORIDE FLUSH SYRINGE 10 ML IV SCH ×2 (09:46→21:07)
--- NOTE | 2018-07-27 09:53 | Progress Note ---
Assessment and Plan Assessment and plan: 48-year-old -[place]ian female with history of hypertension presents to [facility] ED with complaints of periumbilical hernia, abdominal pain, n/v/d. Manual hernia reduction was attempted earlier. However patient removed abdominal binder and hernia came back. Abdominal CT showed fat containing ventral hernia which may be incarcerated. Dr. Ryder (Gen Surg) has been contacted and plans on seeing patient for surgical repair. HTN Urgency Incarcerated Umbilical Hernia Acute Abdominal Pain N/V Plan: Continue supportive care Pain management NPO; may have ice chips for comfort IVF NS @ 100ml/hr Monitor BP IV hydralazine when necessary Clonidine 0.2mg patch Dr. Ryder (Gen Surg) consulted and following DVT PPX on heparin and SCD's for surgery today History Interval history: Abdominal pain Hospitalist Physical - Physical exam Narrative exam: Gen: Not in acute distress, lying in bed, obese HEENT: Normocephalic, atraumatic Neck: supple, no JVD Heart: S1 and S2 reg, no murmurs, rubs or gallop Lungs: Clear, no crackles, no wheeze Abd: soft, ventral hrnia, mild tenderness, non distended, normal BS Ext: No edema, no clubbing, no cyanosis, Neuro: Awake,alert, oriented x 3, normal speech, moves all ext, non focal Psych:Normal mood - Constitutional Vitals: Temp Pulse Resp BP Pulse Ox 98.5 F 89 20 155/105 95 07/27/18 05:28 07/27/18 05:28 07/27/18 05:28 07/27/18 09:36 07/27/18 05:28 Results - Labs CBC & Chem 7: 07/27/18 08:40 07/27/18 08:40 Labs: Laboratory Last Values WBC 7.1 K/mm3 (4.5-11.0) 07/27/18 08:40 RBC 4.41 M/mm3 (3.65-5.03) 07/27/18 08:40 Hgb 13.8 gm/dl (10.1-14.3) 07/27/18 08:40 Hct 40.0 % (30.3-42.9) 07/27/18 08:40 MCV 91 fl (79-97) 07/27/18 08:40 MCH 31 pg (28-32) 07/27/18 08:40 MCHC 35 % (30-34) H 07/27/18 08:40 RDW 13.7 % (13.2-15.2) 07/27/18 08:40 Plt Count 184 K/mm3 (140-440) 07/27/18 08:40 Lymph % (Auto) 19.4 % (13.4-35.0) 07/27/18 08:40 [place] % (Auto) 6.6 % (0.0-7.3) 07/27/18 08:40 Eos % (Auto) 0.1 % (0.0-4.3) 07/27/18 08:40 Baso % (Auto) 0.5 % (0.0-1.8) 07/27/18 08:40 Lymph # 1.4 K/mm3 (1.2-5.4) 07/27/18 08:40 [place] # 0.5 K/mm3 (0.0-0.8) 07/27/18 08:40 Eos # 0.0 K/mm3 (0.0-0.4) 07/27/18 08:40 Baso # 0.0 K/mm3 (0.0-0.1) 07/27/18 08:40 Seg Neutrophils % 73.4 % (40.0-70.0) H 07/27/18 08:40 Seg Neutrophils # 5.2 K/mm3 (1.8-7.7) 07/27/18 08:40 Sodium 141 mmol/L (137-145) 07/27/18 08:40 Potassium 3.5 mmol/L (3.6-5.0) L 07/27/18 08:40 Chloride 100.4 mmol/L (98-107) 07/27/18 08:40 Carbon Dioxide 27 mmol/L (22-30) 07/27/18 08:40 17 mmol/L 07/27/18 08:40 BUN 12 mg/dL (7-17) 07/27/18 08:40 0.8 mg/dL (0.7-1.2) 07/27/18 08:40 Estimated GFR > 60 ml/min 07/27/18 08:40 15 % 07/27/18 08:40 Glucose 111 mg/dL (65-100) H 07/27/18 08:40 Calcium 9.0 mg/dL (8.4-10.2) 07/27/18 08:40 Active Medications - Current Medications Current Medications: Generic Name Dose Route Start Last Admin Trade Name Freq PRN Reason Stop Dose Admin Acetaminophen 650 mg 07/26/18 21:46 Tylenol PO Q4H PRN Pain MILD(1-3)/Fever >100.5/SELBY Clonidine HCl 0.2 mg 07/27/18 08:00 07/27/18 09:36 Catapres-Tts Patch TD 0.2 mg We DASHAWN Administration Heparin Sodium (Porcine) 5,000 unit 07/26/18 22:00 07/27/18 09:45 Heparin SUB-Q Not Given Q12HR DASHAWN Hydralazine HCl 10 mg 07/26/18 23:00 Apresoline IV Q4H PRN Blood Pressure Hydromorphone HCl 0.5 mg 07/26/18 21:46 07/27/18 01:01 Dilaudid IV 0.5 mg Q3H PRN Administration Pain , Severe (7-10) Sodium Chloride 1,000 mls @ 100 mls/hr 07/26/18 22:00 07/27/18 09:43 Nacl 0.9% 1000 Ml IV 100 mls/hr DIRECT DASHAWN Administration Cefazolin Sodium 2 gm in 20 mls @ 80 mls/hr 07/27/18 09:00 Ancef/Sterile Water 2 Gm/20 Ml IV 07/27/18 23:00 PREOP NR Morphine Sulfate 2 mg 07/26/18 21:46 07/26/18 22:24 Morphine IV 2 mg Q4H PRN Administration Pain, Moderate (4-6) Ondansetron HCl 4 mg 07/26/18 21:46 07/26/18 22:25 Zofran IV 4 mg Q8H PRN Administration Nausea And Vomiting Sodium Chloride 10 ml 07/26/18 22:00 07/27/18 09:46 Sodium Chloride Flush Syringe 10 Ml IV Not Given BID DASHAWN Sodium Chloride 10 ml 07/26/18 21:46 Sodium Chloride Flush Syringe 10 Ml IV PRN PRN LINE FLUSH
[2018-07-27] MEDS: APRESOLINE IV PRN (11:11)
[2018-07-27] MEDS ORDERED: DILAUDID IV PRN (12:32)
--- NOTE | 2018-07-27 12:38 | Anesthesia Consultation ---
Anesthesia Consult and Med Hx Date of service: 07/27/18 - Airway Anesthetic Teeth Evaluation: Good ROM Head & Neck: Adequate Mental/Hyoid Distance: Adequate Mallampati Class: Class III Intubation Access Assessment: Possibly Difficult - Pulmonary Exam CTA: Yes - Cardiac Exam Cardiac Exam: RRR - Pre-Operative Health Status ASA Pre-Surgery Classification: ASA2 Proposed Anesthetic Plan: General - Pulmonary Hx Smoking: No Hx Respiratory Symptoms: No Hx Sleep Apnea: No - Cardiovascular System Hx Hypertension: Yes Hx Heart Attack/AMI: No Hx Percutaneous Transluminal Coronary Angioplasty (PTCA): No Hx Cardia Arrhythmia: No - Central Nervous System Hx Seizures: No CVA: No Hx Psychiatric Problems: No - Gastrointestinal Hx Gastroesophageal Reflux Disease: No - Endocrine Hx Renal Disease: No Hx Liver Disease: No Hx Insulin Dependent Diabetes: No Hx Non-Insulin Dependent Diabetes: No Hx Thyroid Disease: No - Hematic Hx Anemia: No - Other Systems Hx Obesity: No - Additional Comments Anesthesia Medical History Comments: No anesthetic complications. Will give home dose amlodipine prior to surgery.
--- NOTE | 2018-07-27 12:38 | Anesthesia Day of Surgery ---
Anesthesia Day of Surgery - Day of Surgery Patient Examined: Yes Patient H&P Reviewed: Yes Patient is NPO: Yes
[2018-07-27] MEDS ORDERED: XYLOCAINE 1% 20 mL ONE (12:48)
[2018-07-27] MEDS ORDERED: MARCAINE 0.5% INFILTRATI ONE (12:48)
[2018-07-27] MEDS ORDERED: DIPRIVAN 10 MG/ML IV ONE (12:58)
[2018-07-27] MEDS ORDERED: SUBLIMAZE ONE ×2 (12:59→15:37)
[2018-07-27] MEDS ORDERED: VERSED IV NR (13:00)
[2018-07-27] MEDS: NORVASC PO SCH (13:00)
[2018-07-27] MEDS ORDERED: DECADRON ONE (13:04)
[2018-07-27] MEDS ORDERED: ZOFRAN ONE (13:04)
[2018-07-27] MEDS ORDERED: ZEMURON IV ONE (13:04)
[2018-07-27] MEDS ORDERED: NORMODYNE IV ONE (17:00)
[2018-07-27] MEDS ORDERED: XYLOCAINE MPF 2% ONE (17:00)
[2018-07-27] MEDS ORDERED: BLOXIVERZ ONE (17:13)
[2018-07-27] MEDS ORDERED: TORADOL ONE (17:13)
[2018-07-27] MEDS ORDERED: ROBINUL ONE ×2 (17:13)
--- NOTE | 2018-07-27 17:28 | Post Operative Note ---
Date of procedure: 07/27/18 (dictation:[id number]) Pre-op diagnosis: incarcerated ventral hernia Post-op diagnosis: same Findings: 2x3cm fascial defect with incarcerated omentum. Also had large lipoma. Procedure: robotic assisted VHR IVF 1800cc Anesthesia: GETA Surgeon: NANDO KHOURY Estimated blood loss: 50-100ml Pathology: none Condition: stable Disposition: PACU
[2018-07-27] MEDS ORDERED: NORCO 5/325 PO PRN (17:30)
--- NOTE | 2018-07-27 18:45 | Post Anesthesia Evaluation ---
- Post Anesthesia Evaluation Patient Participated: Yes Airway Patent: Yes Stable Respiratory Function: Yes Nausea/Vomiting: No Temp > 96.8F: Yes Pain Manageable: Yes Adequeate Hydration: Yes Anesthesia Complications: No
[2018-07-27] MEDS: TORADOL IV SCH ×2 (19:11→23:23)
--- NOTE | 2018-07-27 22:22 | Operative Report ---
PREOPERATIVE DIAGNOSIS: Incarcerated ventral hernia. POSTOPERATIVE DIAGNOSIS: Incarcerated ventral hernia. PROCEDURE: Robotic-assisted ventral hernia repair with mesh. ATTENDING PHYSICIAN: Lars Ryder MD ANESTHESIA: General. ESTIMATED BLOOD LOSS: Approximately 50 mL. FLUIDS: 1800 hours. FINDINGS: A 2 x 3 cm fascial defect superior to the umbilicus with incarcerated omentum and a large lipoma. IMPLANTS: 11 x 14 Bard mesh that was trimmed to 11 x 12. DRAINS: None. COMPLICATIONS: None. DISPOSITION: Stable, transferred to Recovery Room. INDICATIONS: This is a 48-year-old female who presented multiple times to the Emergency Room due to complaints of abdominal pain. She was diagnosed to have an incarcerated hernia. It was only able to be reduced with conscious sedation, but she kept having recurrent attacks. She was eventually admitted. General Surgery was consulted. The patient is assessed to be in need for robotic repair. Procedure, risks and benefits were explained to the patient. Risks included but were not limited to infection, bleeding, pain, injury to surrounding structures, possible recurrence, and possible need for further procedures in the future. The patient understood and consented. OPERATIVE NOTE: The patient was brought to the operating room and placed on the table in supine position. After adequate general anesthesia was established, the patient was prepped and draped in the usual sterile fashion. Ancef had been administered prior to start of the case. SCDs were in place. Time-out was called. I began by placing a Veress needle in the left upper quadrant at Quan's point. I was able to insufflate on the first attempt. This was replaced with a 5 mm port using an Optiview technique for entry. There was no injury to the underlying structures. I placed a 12 mm port near the xiphoid 2 fingerbreadths below and then another 8-mm port in the right upper quadrant. We identified the hernia and were able to reduce it now that she was under general anesthesia. We were left with a 2 x 3 cm fascial defect with a very large hernia sac and replaced the 5 mm port with the 8 mm port. I inserted mesh 3-0 V-Loc suture, 2-0 Vicryl suture and then two Ray-Tecs. We also inserted a measuring tape, so we could measure our defect for the exact size and make sure the mesh was appropriate. Once this was done, we docked the robot. The patient was then in Trendelenburg position and transferred over to the console. I began making my preperitoneal flap superiorly, took the dissection down all the way to the hernia defect without sac compromise. I was able to completely reduce the sac intact and we found a large lipoma that we reduced. I continued the dissection to the level of the umbilicus. We had the dissection about 4-5 cm laterally. We had difficulty on the right side as falciform was in the way, it was quite large. We divided the falciform with electrocautery. We had no evidence of any bleeding; however, it was still large and hanging in our field, which made the dissection difficult. I then closed the fascial defect with the 0 V-Loc suture in a transverse manner. It closed very nicely. We incorporated some of the hernia cavity and had some loose areolar tissue that we incorporated into the closure. We could see that flattened out the skin fairly nicely. There was no pinching of the skin. Once this was done, we laid the mesh in place. I secured it in a couple of places with 2-0 Vicryl suture. We had to modify the superior portion of the mesh as it extended too high for us to have an adequate ability to see and close. Once this was done, we then used the 3-0 V-Loc suture. We ended up needing two of them to close the peritoneal defect. We were able to get near complete coverage of the entire mesh. The mesh was coated on the side towards the bowel, so I was not concerned about small little defects that might come in contact with the mesh as the mesh had nonadherent coating. We had good hemostasis. Once this was done, we then transferred back to a laparoscopic case. I removed all the needles, the two Ray-Tecs, the excised portion of the mesh, and the ruler. All counts were correct. At this point, we had no bleeding. The 12 mm port had been placed at an oblique angle to minimize the risk of hernia. Therefore, the fascia was not closed. Additional local was injected into all the skin sites. The skin sites were closed with 4-0 Monocryl subcuticular stitches. Skin was cleaned and dried. Dermabond was placed. The patient tolerated the procedure well and there were no complications. All counts were correct at the end of the case. I spoke with her friend at the end of the case. JOB# [id number] ANN/CHANTEL PERRY
[2018-07-28] MEDS: NACL 0.9% 1000 ML 1,000 ML IV SCH (05:27)
[2018-07-28] MEDS: TORADOL IV SCH ×2 (05:35→11:06)
[2018-07-28] MEDS: APRESOLINE IV PRN (06:41)
--- NOTE | 2018-07-28 07:39 | Progress Note ---
Assessment and Plan - Patient Problems (1) Incarcerated ventral hernia Current Visit: Yes Status: Acute Plan to address problem: Pt stable. S/P robotic assisted ventral hernia repair. Pt doing well. Ok to d/c home from my standpoint. Rec: 1) Regular diet 2) pt should wear binder during the day. May remove at night if interfering with sleep 3) may shower tomorrow. Pat dry wounds 4) No Abx for home 5) Walk frequently. 6) Ice pack to area where hernia used to be. 7) f/u in office in 7-10 days. 8) Off work for 2 weeks 9) No straining or heavy lifting. please call with questions. Subjective Date of service: 07/28/18 Patient Reports: Positive: no new complaints, feels better, pain is less, tolerating liquids well. Negative: nausea, vomiting Objective Vital Signs - 12hr 07/27/18 07/28/18 07/28/18 22:00 00:40 06:09 Temperature 99.4 F 98.4 F Pulse Rate 95 H 83 Respiratory 18 20 16 Rate Blood Pressure 157/88 184/103 O2 Sat by Pulse 92 94 Oximetry 07/28/18 06:41 Temperature Pulse Rate 83 Respiratory Rate Blood Pressure 184/103 O2 Sat by Pulse Oximetry - General physical appearance no distress, no pain, other (looks better) - Respiratory normal expansion, normal respiratory effort - Abdomen soft, tender (appropriate at areas of surgery. rest of abdomen is benign), not distended, not guarding, not rigid - Integumentary no rash, no growths, no abnormal pigmentation - Psychiatric oriented to time, oriented to person, oriented to place, speech is normal, memory intact - Labs 07/27/18 08:40 07/27/18 08:40 Diabetes panel 07/27/18 Range/Units 08:40 Sodium 141 (137-145) mmol/L Potassium 3.5 L (3.6-5.0) mmol/L Chloride 100.4 (98-107) mmol/L Carbon Dioxide 27 (22-30) mmol/L BUN 12 (7-17) mg/dL Creatinine 0.8 (0.7-1.2) mg/dL Glucose 111 H (65-100) mg/dL Calcium 9.0 (8.4-10.2) mg/dL Calcium panel 07/27/18 Range/Units 08:40 Calcium 9.0 (8.4-10.2) mg/dL Pituitary panel 07/27/18 Range/Units 08:40 Sodium 141 (137-145) mmol/L Potassium 3.5 L (3.6-5.0) mmol/L Chloride 100.4 (98-107) mmol/L Carbon Dioxide 27 (22-30) mmol/L BUN 12 (7-17) mg/dL Creatinine 0.8 (0.7-1.2) mg/dL Glucose 111 H (65-100) mg/dL Calcium 9.0 (8.4-10.2) mg/dL Adrenal panel 07/27/18 Range/Units 08:40 Sodium 141 (137-145) mmol/L Potassium 3.5 L (3.6-5.0) mmol/L Chloride 100.4 (98-107) mmol/L Carbon Dioxide 27 (22-30) mmol/L BUN 12 (7-17) mg/dL Creatinine 0.8 (0.7-1.2) mg/dL Glucose 111 H (65-100) mg/dL Calcium 9.0 (8.4-10.2) mg/dL
[2018-07-28] MEDS: NORVASC PO SCH (11:08)
[2018-07-28] MEDS: HEPARIN SUB-Q SCH (11:09)
[2018-07-28] MEDS: SODIUM CHLORIDE FLUSH SYRINGE 10 ML IV SCH (11:14)
--- NOTE | 2018-07-28 11:27 | Discharge Summary ---
Providers - Providers Date of Admission: 07/26/18 21:46 Date of discharge: 07/28/18 Attending physician: SERGIO PEDERSEN 07/26/18 21:10 Consult to Physician [CONS] Routine Comment: Dr. Stanton spoke with Dr. Ryder @ 2031 Consulting Provider: NANDO RYDER Physician Instructions: Reason For Exam: umbilical / ventral hernia Primary care physician: [facility] Hospitalization Condition: Fair Procedures: Robotic assisted ventral hernia repair by Dr. Ryder on 07/27/18 Hospital course: Patient is 48-year-old -[place] female with history of hypertension presents to [facility] ED with complaints of periumbilical hernia, abdominal pain, n/v/d. Manual hernia reduction was attempted earlier. However patient removed abdominal binder and hernia came back. Abdominal CT showed fat containing ventral hernia which may be incarcerated. She was admitted, evaluated by Dr. Ryder (Gen Surg). Robotic assisted ventral hernia repair was done by Dr. Ryder on 07/27/18 and she was discharged home following day. Total time spent on discharge, 31 mins. Disposition: DC- TO HOME OR SELFCARE - Discharge Diagnoses (1) Hypertensive urgency Status: Acute (2) Incarcerated ventral hernia Status: Acute (3) Nausea & vomiting Status: Acute Qualifiers: Vomiting type: unspecified Vomiting Intractability: non-intractable Qualified Code(s): R11.2 - Nausea with vomiting, unspecified Core Measure Documentation - Palliative Care Palliative Care/ Comfort Measures: Not Applicable - Core Measures Any of the following diagnoses?: none Exam - Constitutional Vitals: Temp Pulse Resp BP Pulse Ox 98.4 F 94 H 20 148/88 94 07/28/18 06:09 07/28/18 11:08 07/28/18 11:06 07/28/18 11:11 07/28/18 06:09 Plan Diet: low fat, low cholesterol, low salt Additional Instructions: 1.Follow up with PCP or [place] [facility] in 1 week. 2.Follow up with Dr. Ryder in 1 week. 3.Off work for 2 weeks. 4.Avoid straining or heavy lifting Follow up with: JENNY OHAAR MD [Primary Care Provider] - 3-5 Days Forms: Work/School Release Form Prescriptions: Hydralazine HCl 50 mg PO BID #60 tablet HYDROcodone/APAP 5-325 [Ronda 5-325 mg TAB] 1 each PO Q6H PRN #20 tablet PRN Reason: Pain, Moderate (4-6)
[2018-07-28 13:55] VITALS: BP 144/83
[2018-07-28] MEDS ORDERED: APRESOLINE PO SCH (14:00)
== END 2018-07-28 15:36 | disposition home or self-care (01) | DRG 355 ==
LOC: ED 18:39 → 3A 21:46
PROVIDERS: ADMIT Internal Medicine; ATTEND Internal Medicine
PROC: 0WUF4JZ Supplement Abdominal Wall with Synthetic Substitute, Percutaneous Endoscopic Approach (ICD-10-PCS; principal; 2018-07-27)
PROC: 8E0W4CZ Robotic Assisted Procedure of Trunk Region, Percutaneous Endoscopic Approach (ICD-10-PCS; 2018-07-27)
DX: K43.6 Other and unspecified ventral hernia with obstruction, without gangrene (principal); I10 Essential (primary) hypertension; K42.0 Umbilical hernia with obstruction, without gangrene; R11.2 Nausea with vomiting, unspecified; I16.0 Hypertensive urgency; D17.79 Benign lipomatous neoplasm of other sites
CPT/HCPCS: 36415; 80048; 85025; G0378; C1781; J0360; J0690; J1100; J1170; J1644; J1885; J2060; J2250; J2270; J2405; J2704; J2710; J3010; J7030

== ENCOUNTER 2019-11-09 09:25 | Emergency (ER) | payer SELFPAY ==
[2019-11-09 09:34] VITALS: BP 171/96
[2019-11-09] MEDS ORDERED: oxyCODONE /ACETAMINOPHEN 5-325MG TAB PO ONE (10:59)
--- NOTE | 2019-11-09 11:32 | Emergency Department Report ---
ED Lower Extremity HPI - General Chief Complaint: Extremity Injury, Lower Stated Complaint: RT KNEE PAIN Time Seen by Provider: 11/09/19 10:50 Source: patient Mode of arrival: Wheelchair Limitations: No Limitations - History of Present Illness Initial Comments: Patient is a 49-year-old female presents emergency room with complaints of a right knee injury that occurred last night. Patient states that she hit her knee against the edge of a table last night. She states since then she has had increasing pain and swelling. She states that she is ambulatory but with pain and with a limp. She denies ever injuring this knee in the past. She denies any numbness or weakness. She has a past medical history of hypertension. She denies any allergies to medications. She states that she went through menopause. - Related Data Previous Rx's Medication Instructions Recorded Last Taken Type Meclizine [Antivert] 25 mg PO TID PRN #30 tablet 10/13/17 07/26/18 Rx amLODIPine 10 mg PO DAILY #30 tab 07/26/18 07/26/18 Rx hydroCHLOROthiazide [HCTZ] 12.5 mg PO QDAY #30 capsule 07/26/18 07/26/18 Rx HYDROcodone/APAP 5-325 [[place]wood 1 each PO Q6H PRN #20 tablet 07/28/18 Unknown Rx 5-325 mg TAB] Hydralazine HCl 50 mg PO BID #60 tablet 07/28/18 Unknown Rx HYDROcodone/APAP 5-325 [[place] 1 each PO Q6HR PRN #12 tablet 11/09/19 Unknown Rx 5/325] Ibuprofen [Motrin 600 MG tab] 600 mg PO Q8H PRN #20 tablet 11/09/19 Unknown Rx Allergies Allergy/AdvReac Type Severity Reaction Status Date / Time No Known Allergies Allergy Unverified 10/13/17 08:59 ED Review of Systems ROS: Stated complaint: RT KNEE PAIN Other details as noted in HPI Comment: All other systems reviewed and negative ED Past Medical Hx - Past Medical History Previous Medical History?: Yes Hx Hypertension: Yes Hx Heart Attack/AMI: No Hx Congestive Heart Failure: No Hx Diabetes: No Hx Liver Disease: No Hx Renal Disease: No Hx Seizures: No Hx Asthma: No Hx COPD: No Additional medical history: Periumbilical hernia - Surgical History Past Surgical History?: Yes Additional Surgical History: hernia - Social History Smoking Status: Never Smoker Substance Use Type: None - Medications Home Medications: Home Medications Medication Instructions Recorded Confirmed Last Taken Type Meclizine [Antivert] 25 mg PO TID PRN #30 tablet 10/13/17 07/26/18 07/26/18 Rx amLODIPine 10 mg PO DAILY #30 tab 07/26/18 07/26/18 07/26/18 Rx hydroCHLOROthiazide [HCTZ] 12.5 mg PO QDAY #30 capsule 07/26/18 07/26/18 07/26/18 Rx HYDROcodone/APAP 5-325 [[place] 1 each PO Q6H PRN #20 tablet 07/28/18 Unknown Rx 5-325 mg TAB] Hydralazine HCl 50 mg PO BID #60 tablet 07/28/18 Unknown Rx HYDROcodone/APAP 5-325 [[place] 1 each PO Q6HR PRN #12 tablet 11/09/19 Unknown Rx 5/325] Ibuprofen [Motrin 600 MG tab] 600 mg PO Q8H PRN #20 tablet 11/09/19 Unknown Rx ED Physical Exam - General Limitations: No Limitations General appearance: alert, in no apparent distress - Head Head exam: Present: atraumatic, normocephalic - Eye Eye exam: Present: normal appearance - ENT ENT exam: Present: mucous membranes moist - Extremities Exam Extremities exam: Present: other (ttp to the right, anterior medial knee, there is edema present, decreased ROM of the right knee secondary to pain, no obvious deformity, no ttp to the right farah, ankle, foot, or digits, neurovascularly intact) - Neurological Exam Neurological exam: Present: alert, oriented X3 - Psychiatric Psychiatric exam: Present: normal affect, normal mood - Skin Skin exam: Present: warm, dry, intact ED Course Vital Signs 11/09/19 11/09/19 09:30 11:32 Temperature 98.9 F Pulse Rate 84 Respiratory 18 18 Rate Blood Pressure 171/96 O2 Sat by Pulse 99 Oximetry ED Lower Extremity MDM - Radiology Data Radiology results: report reviewed RIGHT KNEE 3 VIEWS INDICATION: right knee pain and swelling after injury. COMPARISON: No relevant prior imaging study available. FINDINGS: No acute, displaced fracture is seen. There appears to be a moderate to large joint effusion. Tricompartmental degenerative changes noted. The patella is high riding. IMPRESSION: 1. High riding patella may be artifact related to the degree of patient extension/patient positioning. This could be seen in the setting of patellar tendon injury. 2. Moderate to large joint effusion. 3. No displaced fracture is seen. Signer Name: Bridger Claudio MD Signed: 11/09/2019 11:43 AM Workstation Name: [id number] Transcribed By: SERENITY Dictated By: Bridger Claudio MD Electronically Authenticated By: Bridger Claudio MD Signed Date/Time: 11/09/19 1143 DD/ 114 TD/TT: - Medical Decision Making Patient is a 49-year-old female presents emergency room with complaints of a right knee injury that occurred last night. Patient states that she hit her knee against the edge of a table last night. She states since then she has had increasing pain and swelling. She states that she is ambulatory but with pain and with a limp. She denies ever injuring this knee in the past. She denies any numbness or weakness. She has a past medical history of hypertension. She denies any allergies to medications. She states that she went through menop ause. on exam: ttp to the right, anterior medial knee, there is edema present, decreased ROM of the right knee secondary to pain, no obvious deformity, no ttp to the right farah, ankle, foot, or digits, neurovascularly intact. XR right knee: 1. High riding patella may be artifact related to the degree of patient extension/patient positioning. This could be seen in the setting of patellar tendon injury. 2. Moderate to large joint effusion. 3. No displaced fracture is seen. Patient given pain medication while in the emergency department as she did not drive and symptoms improved. Patient placed in knee immobilizer and given crutches by ground services instructor and remained neurovascular intact. Discussed x-ray findings with patient and the possible concern for tendon injury, advised patient to not bear weight on the leg, discussed the importance of orthopedic follow-up. Patient given prescription for [place] and ibuprofen. Advised patient Please take medication as prescribed. Do not drive or operate machinery while taking pain medication. Follow-up with orthopedic doctor. it is very important that you follow up. Return to emergency room for any new or worsening symptoms. - Differential Diagnosis strain, sprain, fx, dislocation, effusion, contusion Critical care attestation.: If time is entered above; I have spent that time in minutes in the direct care of this critically ill patient, excluding procedure time. ED Disposition Clinical Impression: High-riding patella Right knee injury Qualifiers: Encounter type: initial encounter Qualified Code(s): S89.91XA - Unspecified injury of right lower leg, initial encounter Joint effusion of knee Qualifiers: Laterality: right Qualified Code(s): M25.461 - Effusion, right knee Disposition: TO HOME OR SELFCARE Is pt being admited?: No Does the pt Need Aspirin: No Condition: Stable Instructions: Knee Effusion (ED), Knee Pain (ED) Additional Instructions: Please take medication as prescribed. Do not drive or operate machinery while t aking pain medication. Follow-up with orthopedic doctor. it is very important that you follow up. Return to emergency room for any new or worsening symptoms. Prescriptions: Ibuprofen [Motrin 600 MG tab] 600 mg PO Q8H PRN #20 tablet PRN Reason: Pain, Moderate (4-6) HYDROcodone/APAP 5-325 [[place] 5/325] 1 each PO Q6HR PRN #12 tablet PRN Reason: Pain , Severe (7-10) Referrals: PRIMARY CAREMD [Primary Care Provider] - 2-3 Days CLARICE PINEDA MD [Staff Physician] - 2-3 Days [facility] [Provider Group] - 2-3 Days Forms: Work/School Release Form(ED) Time of Disposition: 11:59 Print Language: SURINAMESE
--- NOTE | 2019-11-09 11:47 | XRay Report ---
RIGHT KNEE 3 VIEWS INDICATION: right knee pain and swelling after injury. COMPARISON: No relevant prior imaging study available. FINDINGS: No acute, displaced fracture is seen. There appears to be a moderate to large joint effusion. Tricompartmental degenerative changes noted. The patella is high riding. IMPRESSION: 1. High riding patella may be artifact related to the degree of patient extension/patient positioning . This could be seen in the setting of patellar tendon injury. 2. Moderate to large joint effusion. 3. No displaced fracture is seen. Signer Name: Bridger Claudio MD Signed: 11/09/2019 11:43 AM Workstation Name: [id number]
== END 2019-11-09 12:32 | disposition home or self-care (01) ==
LOC: ED 09:25
DX: S89.91XA Unspecified injury of right lower leg, initial encounter (principal); M25.461 Effusion, right knee; I10 Essential (primary) hypertension; Z79.899 Other long term (current) drug therapy; W22.8XXA Striking against or struck by other objects, initial encounter; Y93.89 Activity, other specified; Y92.89 Other specified places as the place of occurrence of the external cause; Y99.8 Other external cause status
CPT/HCPCS: 99283

== ENCOUNTER 2021-05-22 11:25 | Emergency (ER) | payer OTHER ==
--- NOTE | 2021-05-22 12:14 | Emergency Department Report ---
ED N/V/D HPI - General Chief complaint: Nausea/Vomiting/Diarrhea Stated complaint: STOMACH PAIN Time Seen by Provider: 05/22/21 11:48 Source: patient Mode of arrival: Ambulatory Limitations: No Limitations - History of Present Illness Initial comments: 51-year-old female who presents with nausea and vomiting that started after eating [employer] this morning. Symptom is associated with diffuse abdominal discomfort. She says she cannot keep anything down since then. Emesis is nonbloody. Patient denies any fever or chills. Patient cannot get comfortable on the examination bed. She reports last menstrual period about 10 years ago. Patient denies any diarrhea. No sick contacts. No other modifying or associated factors reported. - Related Data Previous Rx's Medication Instructions Recorded Last Taken Type Meclizine [Antivert] 25 mg PO TID PRN #30 tablet 10/13/17 07/26/18 Rx amLODIPine 10 mg PO DAILY #30 tab 07/26/18 07/26/18 Rx hydroCHLOROthiazide [HCTZ] 12.5 mg PO QDAY #30 capsule 07/26/18 07/26/18 Rx HYDROcodone/APAP 5-325 [[place] 1 each PO Q6H PRN #20 tablet 07/28/18 Unknown Rx 5-325 mg TAB] Hydralazine HCl 50 mg PO BID #60 tablet 07/28/18 Unknown Rx HYDROcodone/APAP 5-325 [[place] 1 each PO Q6HR PRN #12 tablet 11/09/19 Unknown Rx 5/325] Ibuprofen [Motrin 600 MG tab] 600 mg PO Q8H PRN #20 tablet 11/09/19 Unknown Rx Ondansetron (Nf) [Zofran TAB] 8 mg PO Q8HR PRN 5 Days #14 tablet 05/22/21 Unknown Rx Pantoprazole [Protonix] 40 mg PO QDAY 30 Days #30 tablet 05/22/21 Unknown Rx Allergies Allergy/AdvReac Type Severity Reaction Status Date / Time No Known Allergies Allergy Unverified 10/13/17 08:59 ED Review of Systems ROS: Stated complaint: STOMACH PAIN Other details as noted in HPI Comment: All other systems reviewed and negative Gastrointestinal: abdominal pain, nausea, vomiting ED Past Medical Hx - Past Medical History Hx Hypertension: Yes Hx Heart Attack/AMI: No Hx Congestive Heart Failure: No Hx Diabetes: No Hx Liver Disease: No Hx Renal Disease: No Hx Seizures: No Hx Asthma: No Hx COPD: No Additional medical history: Periumbilical hernia - Surgical History Additional Surgical History: hernia - Social History Smoking Status: Never Smoker Substance Use Type: None - Medications Home Medications: Home Medications Medication Instructions Recorded Confirmed Last Taken Type Meclizine [Antivert] 25 mg PO TID PRN #30 tablet 10/13/17 07/26/18 07/26/18 Rx amLODIPine 10 mg PO DAILY #30 tab 07/26/18 07/26/18 07/26/18 Rx hydroCHLOROthiazide [HCTZ] 12.5 mg PO QDAY #30 capsule 07/26/18 07/26/18 07/26/18 Rx HYDROcodone/APAP 5-325 [[place] 1 each PO Q6H PRN #20 tablet 07/28/18 Unknown Rx 5-325 mg TAB] Hydralazine HCl 50 mg PO BID #60 tablet 07/28/18 Unknown Rx HYDROcodone/APAP 5-325 [[place] 1 each PO Q6HR PRN #12 tablet 11/09/19 Unknown Rx 5/325] Ibuprofen [Motrin 600 MG tab] 600 mg PO Q8H PRN #20 tablet 11/09/19 Unknown Rx Ondansetron (Nf) [Zofran TAB] 8 mg PO Q8HR PRN 5 Days #14 tablet 05/22/21 Unknown Rx Pantoprazole [Protonix] 40 mg PO QDAY 30 Days #30 tablet 05/22/21 Unknown Rx ED Physical Exam - General Limitations: No Limitations General appearance: alert, in no apparent distress - Head Head exam: Present: normal inspection - Eye Eye exam: Present: normal appearance - ENT ENT exam: Present: normal exam, normal orophraynx, mucous membranes moist - Neck Neck exam: Present: normal inspection - Respiratory Respiratory exam: Present: normal lung sounds bilaterally. Absent: respiratory distress, accessory muscle use - Cardiovascular Cardiovascular Exam: Present: regular rate, normal rhythm, normal heart sounds - GI/Abdominal GI/Abdominal exam: Present: soft, tenderness (Diffuse tenderness to palpation), normal bowel sounds. Absent: distended - Extremities Exam Extremities exam: Present: normal inspection, normal capillary refill - Back Exam Back exam: Present: normal inspection. Absent: CVA tenderness (R), CVA tenderness (L) - Neurological Exam Neurological exam: Present: alert, oriented X3 - Psychiatric Psychiatric exam: Present: normal affect, normal mood ED Course Vital Signs 05/22/21 05/22/21 11:32 14:51 Temperature 98.2 F Pulse Rate 83 78 Respiratory 17 20 Rate Blood Pressure 222/124 Blood Pressure 201/111 [Left] O2 Sat by Pulse 98 98 Oximetry - Reevaluation(s) Reevaluation #1: 05/22/21 12:13 Here with nausea and vomiting nonbloody associated with diffuse abdominal tenderness to palpation--this is likely gastroenteritis we will go ahead and start IV fluids, Zofran 4 mg for emesis, and 4 mg morphine for pain with routine labs that include CBC, CMP, and lipase. We will also get a CT scan without contrast for any inflammatory changes, Considering this patient extensive abdominal tenderness. Reevaluation #2: 05/22/21 14:18 Patient continues to complain pain even though she got 4 mg of morphine--CT scan of the abdomen/pelvis is pending at this point we will go ahead and give additional 30 mg of Toradol IV and reevaluate shortly Reevaluation #3: 05/22/21 17:52 Patient reported feeling much better CT scan did not show any acute findings cholelithiasis and mild uterine fibroid. 05/22/21 17:53 ED Medical Decision Making - Lab Data Result diagrams: 05/22/21 12:51 05/22/21 12:51 Critical care attestation.: If time is entered above; I have spent that time in minutes in the direct care of this critically ill patient, excluding procedure time. ED Disposition Clinical Impression: Nausea and vomiting Qualifiers: Vomiting type: unspecified Qualified Code(s): R11.2 - Nausea with vomiting, unspecified Abdominal pain Qualifiers: Abdominal location: unspecified location Qualified Code(s): R10.9 - Unspecified abdominal pain Fibroid uterus Qualifiers: Uterine leiomyoma location: unspecified location Qualified Code(s): D25.9 - Lei omyoma of uterus, unspecified Cholelithiasis Qualifiers: Cholelithiasis location: gallbladder Cholecystitis presence: without cholecystitis Biliary obstruction: without biliary obstruction Qualified Code(s): K80.20 - Calculus of gallbladder without cholecystitis without ob struction Disposition: 01 HOME / SELF CARE / HOMELESS Is pt being admited?: No Does the pt Need Aspirin: No Condition: Stable Instructions: Uterine Fibroids, Cholelithiasis, [id number], Nausea and Vomiting, Adult, [id number], Abdominal Pain, Adult, [id number], Nausea, Adult, [id number] Additional Instructions: Take your nausea medicine as prescribed to help your symptoms Start with a bland diet to advance as tolerated Increase your daily fluid to help your hydration Call or return to emergency room if your symptoms worsen Prescriptions: Pantoprazole [Protonix] 40 mg PO QDAY 30 Days #30 tablet Ondansetron (Nf) [Zofran TAB] 8 mg PO Q8HR PRN 5 Days #14 tablet PRN Reason: Nausea Referrals: JIMMY MERCHANT MD [Primary Care Provider] - 3-5 Days Time of Disposition: 18:00
[2021-05-22] MEDS ORDERED: ONDANSETRON 4 MG/2 ML INJ IV ONE ×2 (12:16→14:19)
[2021-05-22] MEDS ORDERED: SODIUM CHLORIDE 0.9% 1000 ML 1,000 ML IV ONE (12:16)
[2021-05-22] MEDS ORDERED: MORPHINE 4 MG/1 ML INJ IV ONE (12:16)
--- NOTE | 2021-05-22 12:54 | Cat Scan Report ---
CT ABDOMEN AND PELVIS WITHOUT CONTRAST INDICATION / CLINICAL INFORMATION: Abdominal pain. TECHNIQUE: Axial CT images were obtained through the abdomen and pelvis without IV contrast. Sagittal and peters l reformatted images. All CT scans at this location are performed using CT dose reduction for ALARA b y means of automated exposure control. COMPARISON: 07/26/2018 FINDINGS: LOWER CHEST: No significant abnormality. LIVER: No significant abnormality. GALLBLADDER: Multiple calcified gallstones are again noted in the gallbladder. No abnormal distention , wall thickening or pericholecystic fluid. BILE DUCTS: No significant abnormality. PANCREAS: No significant abnormality. SPLEEN: No significant abnormality. ADRENALS: No significant abnormality. RIGHT KIDNEY and URETER: No significant abnormality. LEFT KIDNEY and URETER: No significant abnormality. STOMACH and SMALL BOWEL: No significant abnormality. COLON: No significant abnormality. APPENDIX: No significant abnormality. PERITONEUM: No free fluid. No free air. No fluid collection. LYMPH NODES: No significant adenopathy. AORTA and ARTERIES: No significant abnormality. IVC and VEINS: No significant abnormality. URINARY BLADDER: No significant abnormality. REPRODUCTIVE ORGANS: The uterus is enlarged and lobular consistent with moderate fibroid disease. One of the largest fibroids measures up to 5-6 cm from the anterior fundus. The adnexa are unremarkable. ADDITIONAL FINDINGS: Moderate to large umbilical hernia containing fat seen on the previous exam has been surgically repaired or reduced. SKELETAL SYSTEM: No significant abnormality. IMPRESSION: No acute inflammatory process. Cholelithiasis but no evidence for acute cholecystitis. Moderate uterine fibroid disease. Signer Name: Jordin Diop Jr, MD Signed: 05/22/2021 12:49 PM Workstation Name: [id number]
[2021-05-22 13:17] LABS: Basophils % (Auto) 0.5 % (0.0-1.8); Eosinophils # (Auto) 0.1 K/mm3 (0.0-0.4); Eosinophils % (Auto) 0.7 % (0.0-4.3); Hematocrit 37.5 % (30.3-42.9); Hemoglobin 12.9 gm/dl (10.1-14.3); Lymphocytes # (Auto) 1.2 K/mm3 (1.2-5.4); Lymphocytes % (Auto) 12.2 % (13.4-35.0); Mean Corpuscular HGB Conc 35 % (30-34); Mean Corpuscular Volume 88 fl (79-97); Monocytes # (Auto) 0.4 K/mm3 (0.0-0.8); Monocytes % (Auto) 4.5 % (0.0-7.3); Platelet Count 173 K/mm3 (140-440); Red Blood Count 4.24 M/mm3 (3.65-5.03); Red Cell Distribution Width 13.6 % (13.2-15.2)
[2021-05-22 13:55] LABS: Alanine Aminotransferase 24 units/L (7-56); Albumin 4.8 g/dL (3.9-5); Blood Urea Nitrogen 8 mg/dL (7-17); Calcium 9.2 mg/dL (8.4-10.2); Hemolysis Index 20
[2021-05-22 13:56] LABS: BUN/Creatinine Ratio 13
[2021-05-22] MEDS ORDERED: KETOROLAC 30 MG/1 ML INJ IV ONE (14:19)
[2021-05-22 14:57] VITALS: BP 201/111
[2021-05-22 16:22] LABS: Bilirubin,Urine NEG (Negative); Blood,Urine NEG (Negative); Color,Urine Colorless (Yellow); Mucus,Urine FEW /HPF; Protein,Urine <15 mg/dL mg/dL (Negative); RBC,Urine < 1.0 /HPF (0.0-6.0); Urobilinogen,Urine < 2.0 mg/dL (<2.0); WBC,Urine < 1.0 /HPF (0.0-6.0)
== END 2021-05-22 18:21 | disposition home or self-care (01) ==
LOC: ED 11:25
DX: D25.9 Leiomyoma of uterus, unspecified (principal); K80.20 Calculus of gallbladder without cholecystitis without obstruction; R11.2 Nausea with vomiting, unspecified; I10 Essential (primary) hypertension; Z79.899 Other long term (current) drug therapy
CPT/HCPCS: 36415; 74176; 80053; 81001; 83690; 85025; 96361; 96374; 96375; 96376; 99284; J1885; J2270; J2405; J7030; Q0162